=== PATIENT | male | born 1945 | race Caucasian/White ===

== ENCOUNTER 2021-04-02 13:03 | Emergency (ER) | payer MEDICARE, OTHER ==
[2021-04-02 14:21] LABS: BASOPHIL 0.5 % (0-2); EOSINOPHIL 1.2 % (0-7); HCT 44.1 % (42.0-52.0); LYMPHOCYTE 27.3 % (15-48); MCH 31.1 pg (25.0-31.0); MCV 91.5 fL (78.0-100.0); MONOCYTE 9.3 % (0-12); MPV 9.4 fL (6.0-9.5); NEUTROPHIL 61.3 % (41-80); NRBC 0; PLT 220 K/uL (150-400); RBC 4.82 M/uL (4.70-6.00); RDW 11.8 % (11.5-14.0); WBC 9.4 K/uL (4.0-10.5)
[2021-04-02 15:08] LABS: ALBUMIN 3.6 g/dL (3.4-5.0); BILIRUBIN - TOTAL 0.4 mg/dL (0.2-1.0); CREATININE 1.52 mg/dL (0.67-1.17); GLOBULIN (CALCULATION) 3.6 g/dL; POTASSIUM 4.2 mmol/L (3.5-5.1); TOTAL PROTEIN 7.2 g/dL (6.4-8.2)
[2021-04-02] MEDS ORDERED: SILVADENE20 G1 TOP ×2 (16:12→16:13)
[2021-04-02] MEDS ORDERED: NORCO 5-325 TA1 EACH PO ×2 (16:12→16:13)
== END 2021-04-02 16:55 | disposition home or self-care (01) ==
LOC: FER 13:03
PROVIDERS: Nurse Practitioner Family
DX: T22.212A Burn of second degree of left forearm, initial encounter (principal); T22.211A Burn of second degree of right forearm, initial encounter; T21.20XA Burn of second degree of trunk, unspecified site, initial encounter; T23.202A Burn of second degree of left hand, unspecified site, initial encounter; T23.201A Burn of second degree of right hand, unspecified site, initial encounter; T31.22 Burns involving 20-29% of body surface with 20-29% third degree burns; I10 Essential (primary) hypertension; Z23 Encounter for immunization; X16.XXXA Contact with hot heating appliances, radiators and pipes, initial encounter
CPT/HCPCS: 36415; 80053; 85025; 90471; 90715; 99283; J7030